=== PATIENT | male | born 1950 | race Caucasian/White ===

== ENCOUNTER → 2017-10-26 | Outpatient (CLI) | payer MEDICARE, OTHER ==
[~2017-10-26] MED LIST: CLO1 PO; ESOM40CA42 PO; OMEP-137 PO; TAMS0.4C70 PO; TRAM-420 PO
--- NOTE | 2017-10-26 15:10 | RADIOLOGY IMAGING REPORT ---
[place] [facility] [place] NAME: Redd Nelson : 1950 MR: [id number] V: [id number] EXAM DATE: ORDERING PHYSICIAN: SOLA VILLANUEVA TECHNOLOGIST: Location: [facility] Patient: Redd Nelson : 1950 Visit/Account:[id number] Date of Sevice: 10/26/2017 Exam type: LUMBAR SPINE 4 VIEWS History: Low back pain Comparison: April 22, 2008. Findings: There are five nonrib-bearing lumbar-type vertebral bodies present. There is a gentle dextro convex scoliosis lumbar spine. There is straightening of normal lumbar lordosis which may be related to pat ient positioning versus spasm. There is mild disc space narrowing at T11-12, T12-L1 and L1-L2. Ther e is moderate disc space narrowing L2-3, L3-4, L4-5 and L5-S1. Marginal spurring is seen throughout the lumbar spine. These findings have advanced when compared to the prior study. There is mild ante rior wedging of T12 unchanged IMPRESSION: 1. Multilevel spondylotic change lumbar spine as detailed above. These changes have advanced when c ompared to the prior study from April 22, 2008 Report Dictated By: Eva Maynard MD at 10/26/2017 3:01 PM Report E-Signed By: Eva Maynard MD at 10/26/2017 3:04 PM WSN:[email or web address]
--- NOTE | 2017-10-26 15:15 | RADIOLOGY IMAGING REPORT ---
[facility] PATIENT NAME: Redd Nelson : 1950 MR: [id number] V: [id number] EXAM DATE: ORDERING PHYSICIAN: SOLA VILLANUEVA TECHNOLOGIST: Location: [facility] Patient: Redd Nelson : 1950 Visit/Account:[id number] Date of Sevice: 10/26/2017 Exam type: CHEST PA AND LAT History: Shortness of breath and bronchitis Comparison: November 13, 2014. Findings: There is pleural parenchymal scarring in the lung bases, left greater than right. There has however been a slight increase in the peribronchial thickening throughout the lungs. There is no evidence pl eural effusion's or overt pulmonary edema. Cardiac silhouette is normal. There is a right shoulder arthroplasty. Again noted is a pectus excavatum deformity the anterior chest wall. IMPRESSION: 1. Pleural plaque or scarring in the lung bases left greater than right. Slight increase in the peribronchial markings throughout the lungs which may be secondary to acute br onchitis Report Dictated By: Eva Maynard MD at 10/26/2017 3:04 PM Report E-Signed By: Eva Maynard MD at 10/26/2017 3:10 PM WSN:[email or web address]
--- NOTE | 2017-10-26 16:04 | RADIOLOGY IMAGING REPORT ---
FACILITY: [facility] PATIENT NAME: Redd Nelson : 1950 MR: [id number] V: [id number] EXAM DATE: ORDERING PHYSICIAN: SOLA VILLANUEVA TECHNOLOGIST: Location: [facility] [place] Patient: Redd Nelson : 1950 Visit/Account:[id number] Date of Sevice: 10/26/2017 Exam type: LUMBAR SPINE 4 VIEWS History: Low back pain Comparison: April 22, 2008. Findings: There are five nonrib-bearing lumbar-type vertebral bodies present. There is a gentle dextro convex scoliosis lumbar spine. There is straightening of normal lumbar lordosis which may be related to pat ient positioning versus spasm. There is mild disc space narrowing at T11-12, T12-L1 and L1-L2. Ther e is moderate disc space narrowing L2-3, L3-4, L4-5 and L5-S1. Marginal spurring is seen throughout the lumbar spine. These findings have advanced when compared to the prior study. There is mild ante rior wedging of T12 unchanged IMPRESSION: 1. Multilevel spondylotic change lumbar spine as detailed above. These changes have advanced when c ompared to the prior study from April 22, 2008 Report Dictated By: Eva Maynard MD at 10/26/2017 3:01 PM Report E-Signed By: Eva Maynard MD at 10/26/2017 3:04 PM WSN:[email or web address]
== END ==
LOC: RAD 14:13
PROVIDERS: ATTEND Family Medicine
DX: M47.896 Other spondylosis, lumbar region (principal); R91.8 Other nonspecific abnormal finding of lung field
CPT/HCPCS: 71046; 72120

== ENCOUNTER → 2017-11-06 | Outpatient (REF) | payer MEDICARE, OTHER | LOC: ZZSENDIN 12:00 | PROVIDERS: ATTEND Surgery | DX: L57.8 Other skin changes due to chronic exposure to nonionizing radiation (principal) | CPT/HCPCS: 88305 ==

== ENCOUNTER → 2017-11-10 | Outpatient (CLI) | payer MEDICARE, OTHER ==
--- NOTE | 2017-11-10 13:46 | RADIOLOGY IMAGING REPORT ---
FACILITY: [facility] PATIENT NAME: Redd Nelson : 1950 MR: [id number] V: [id number] EXAM DATE: [id number] ORDERING PHYSICIAN: SCOTT WILLIS TECHNOLOGIST: Location: [facility] Patient: Redd Nelson : 1950 Visit/Account:[id number] Date of Sevice: 11/10/2017 L SPINE W/O CONTRAST COMPARISON: Lumbar spine MRI without contrast dated April 17, 2017 Additional pertinent history: Low back pain radiating down the left leg. Technique: Multiplanar multisequence lumbar spine MRI was performed without gadolinium enhancement. FINDINGS: Postoperative changes: Findings suggestive of previous right hemilaminectomy at L4-L5. Vertebral body heights and alignment: Negative. Vertebral marrow signal: Type I degenerative endplate changes at T12-L1, L2-L3 and L3-L4. Distal thoracic cord and conus: Negative. The conus ends at T12-L1. Surrounding soft tissues: Uniform increased T2 signal lesion involving the lower pole of the right ki dney consistent with a simple cyst. Inspection of the disc spaces reveal the following: L5-S1: Posterior broad-based disc protrusion with posteriorly directed osteophytes and facet hypertro phic changes. Mild bilateral neural foraminal narrowing without canal stenosis. No change since pre vious exam. L4-L5: Posterior broad-based disc protrusion with posteriorly directed osteophytes. Facet hypertroph ic changes. Moderate bilateral neural foraminal narrowing without canal stenosis. No change since p revious exam L3-L4: Posterior broad-based disc protrusion with ligamentum flavum and facet overgrowth. Superimpos ed proximal left neural foraminal extruded migrated disc. Findings contribute to moderate bilateral neural foraminal narrowing with right lateral recess stenosis. No significant central canal stenosis . Findings are stable when compared to previous exam. L2-L3: Posterior broad-based disc protrusion with ligamentum flavum and facet overgrowth. Mild bilat eral neural foraminal narrowing with mild canal stenosis. No change since previous exam. L1-L2: Posterior broad-based disc protrusion with facet hypertrophic changes. Mild bilateral neural foraminal narrowing with mild canal stenosis. No change since previous exam. T12-L1: Minimal circumferential disc bulging with facet hypertrophic changes. No significant canal o r neural foraminal narrowing. No change since previous exam. IMPRESSION: 1. Stable multilevel spondylitic change as discussed above. 2. Continued findings of mild bilateral neural foraminal narrowing and mild canal stenosis at L2-L3 and L1-L2. Report Dictated By: Luis E Correa MD at 11/10/2017 1:26 PM Report E-Signed By: Luis E Correa MD at 11/10/2017 1:40 PM WSN:[email or web address]
== END ==
LOC: MRI 08:28
PROVIDERS: ATTEND Neurological Surgery
DX: M47.896 Other spondylosis, lumbar region (principal); M47.894 Other spondylosis, thoracic region; M48.061 Spinal stenosis, lumbar region without neurogenic claudication
CPT/HCPCS: 72148

== ENCOUNTER → 2019-01-09 | Outpatient (CLI) | payer MEDICARE, OTHER ==
--- NOTE | 2019-01-09 15:37 | RADIOLOGY IMAGING REPORT ---
FACILITY: [facility] - [place] PATIENT NAME: Redd Nelson : 1950 MR: [id number] V: [id number] EXAM DATE: ORDERING PHYSICIAN: SOLA VILLANUEVA TECHNOLOGIST: Location: [facility] [place] Patient: Redd Nelson : 1950 Visit/Account:[id number] Date of Sevice: 01/09/2019 Exam type: CHEST PA LAT History: Abnormal lung sounds Comparison: October 26, 2017. Findings: Chronic linear stranding in the lung bases is again present. There is no evidence of acute infiltrat es pleural effusions or pulmonary edema. Cardiac silhouette is normal in size. There is a pectus ex cavatum deformity the anterior chest wall. There are moderate spondylotic changes of the thoracic sp ine and postsurgical changes of the right shoulder IMPRESSION: 1. Scarring in the lung bases appears unchanged when compared to the prior study Report Dictated By: Eva Maynard MD at 01/09/2019 3:31 PM Report E-Signed By: Eva Maynard MD at 01/09/2019 3:32 PM WSN:[email or web address]
== END ==
LOC: RAD 13:24
PROVIDERS: ATTEND Family Medicine
DX: R09.89 Other specified symptoms and signs involving the circulatory and respiratory systems (principal)
CPT/HCPCS: 71046